=== PATIENT | female | born 1970 | race Caucasian/White ===

== ENCOUNTER 2017-05-09 15:43 | Emergency (ER) | payer MEDICARE, MEDICAID ==
[2017-05-09 17:50] VITALS: BP 101/68
--- NOTE | 2017-05-09 18:26 | UC ---
Throat Pain/Nasal Nik HPI - HPI Summary HPI Summary: 47 y/o female PMHX mental disabilities Presents to the urgent accompany by caregiver from [facility] c/o nasal congestion with green nasal discharge, subjective fever for the pst 3 days. Caregiver states she wants to make sure pt is well. She states Pt has pneumonia in September2016 and was Hospitalized, intubated and on ICU for several days. Pt is UTD with pneumococcal and influenza Vaccines in 03/07/2015 and 02/15/2017 respectively. Pt deneis pain, SOB, cough, chest pain, abdominal pain, N/V/D, urinary symptoms , back pain. - History of Current Complaint Chief Complaint: UCGeneralIllness Stated Complaint: LOW GRADE TEMP, GREEN SNOT Time Seen by Provider: 05/09/17 18:09 Hx Obtained From: Patient Hx Last Menstrual Period: menopausal ?: No Onset/Duration: Gradual Onset, Lasting Days - 3 days, Still Present Severity: Mild Pain Intensity: 0 Pain Scale Used: 0-10 Numeric Cough: None Associated Signs & Symptoms: Positive: Sinus Discomfort, Nasal Discharge, Fever - subjective at home - Allergies/Home Medications Allergies/Adverse Reactions: Allergies Allergy/AdvReac Type Severity Reaction Status Date / Time Risperidone [From Risperdal] Allergy Unknown Verified 05/09/17 17:35 Reaction Details Home Medications: Home Medications Calcium Carbonate-Vitamin D [Calcium 500 + D 500-125 mg-Unit] 1 tab DAILY [History Confirmed 05/09/17] LoraTADine TAB(NF) [Claritin 10 MG TAB(NF)] 1 tab DAILY 05/09/17 [History Confirmed 05/09/17] Sertraline* [Zoloft*] 1 tab BEDTIME 05/09/17 [History Confirmed 05/09/17] PMH/Surg Hx/FS Hx/Imm Hx Previously Healthy: Yes Psychological History: Depression - Surgical History Surgical History: None - Family History Known Family History: Positive: Unknown - Pt doesn't know any FmHX - Social History Occupation: Disabled Lives: Assisted Living Alcohol Use: None Substance Use Type: None Smoking Status (MU): Never Smoked Tobacco - Immunization History Most Recent Influenza Vaccination: 02/15/17 Most Recent Tetanus Shot: 02/03/17 Most Recent Pneumonia Vaccination: 03/07/15 Review of Systems Constitutional: Fever - subjective at home Skin: Negative Eyes: Negative ENT: Nasal Discharge, Sinus Congestion Respiratory: Negative Cardiovascular: Negative Gastrointestinal: Negative Genitourinary: Negative Motor: Negative Neurovascular: Negative Musculoskeletal: Negative Neurological: Negative Psychological: Negative Is Patient Immunocompromised?: No All Other Systems Reviewed And Are Negative: Yes Physical Exam Triage Information Reviewed: Yes Vital Signs: Initial Vital Signs Temp 98.1 F 05/09/17 17:35 Pulse 75 05/09/17 17:35 Resp 16 05/09/17 17:35 BP 101/68 05/09/17 17:35 Pulse Ox 100 05/09/17 17:35 - Additional Comments VITAL SIGNS: Reviewed. GENERAL: Patient is a well developed and nourished female who is sitting comfortable in her wheel chair w/o any any acute respiratory distress or pain. HEAD AND FACE: No signs of trauma. No ecchymosis, hematomas or skull depressions. No sinus tenderness. edematous erythematous nasal mucosa with yellowish discharge, EYES: PERRLA, EOMI x 2, No injected conjunctiva, clear watery eyes, no nystagmus. No photophobia. EARS: Hearing grossly intact. Ear canals and tympanic membranes are within normal limits. MOUTH: Positive pharynx with erythema, no exudates,no palatal petechiae. no B/ L tonsillar enlargement Uvula in midline. NECK: Supple, trachea is midline, Positive anterior cervical lymphadenopathy, no JVD, no carotid bruit, no c-spine tenderness, neck with full ROM. No meningeal signs, no Kernig's or brudzinskis signs. CHEST: Symmetric, no tenderness at palpation LUNGS: Clear to auscultation bilaterally. No wheezing or crackles. CVS: Regular rate and rhythm, S1 and S2 present, no murmurs or gallops appreciated. ABDOMEN: Soft, non-tender. No signs of distention. No rebound no guarding, and no masses palpated. Bowel sounds are normal. EXTREMITIES: FROM in all major joints, no edema, no cyanosis or clubbing. NEURO: Alert and oriented x 3. No acute neurological deficits. Speech is normal and follows commands. SKIN: Dry and warm Throat Pain/Nasal Course/Dx - Course Course Of Treatment: 47 y/o female PMHX mental disabilities Presents to the urgent accompany by caregiver from [facility] c/o nasal congestion with green nasal discharge, subjective fever for the pst 3 days. Caregiver states she wants to make sure pt is well. She states Pt has pneumonia in September2016 and was Hospitalized, intubated and on ICU for several days. Pt is UTD with pneumococcal and influenza Vaccines in 03/07/2015 and 02/15 respectively. Pt denies pain, SOB, cough, chest pain, abdominal pain, N/V/ D, urinary symptoms, back pain.Hx obtained. Pt with URI on examination. Influenza A&B ordered: result: Negative.Pt Rx Saline drops and Flonase nasal spray to clear sinuses and advised to takeTylenol PO prn to alleviates symptoms. Advised on hand washing Pt advised to rest, increase fluid intake, eat well and avoid strenuous exercise. Caregiver advised If symptoms do not improve or worsen to return to the urgent care or f/u with her PCP for further evaluation and treatment. Caregiver and Pt understood and agreed with plan of care. - Differential Dx/Diagnosis Differential Diagnosis/HQI/PQRI: Influenza, Laryngitis, Pharyngitis, Sinusitis, Tonsillitis, URI Provider Diagnoses: 1- Upper respiratory infection Discharge - Discharge Plan Condition: Stable Disposition: HOME Prescriptions: Fluticasone NASAL SPRAY 50MCG* [Flonase NASAL SPRAY 50MCG*] 2 spray BOTH NARES DAILY #1 btl Saline NASAL DROPS 0.65%* [Sodium Chloride 0.65% Nasal DROPS*] 2 drop BOTH NARES ED ONCE #1 btl Patient Education Materials: Upper Respiratory Infection (ED) Referrals: Paola Flores MD [Primary Care Provider] - 3 Days Additional Instructions: 1-Please take Tylenol PO q6-8hrs prn as instructed after meals to alleviate symptoms. Increase fluid intake, eat well, rest and avoid strenuous exercise 2-Please use saline spray OTC: 2 drops on each nostril and flonase nasal spray to clear your sinus. 2-If symptoms do not improve or worsen please return to the urgent care or f/u with your PCP in 3 days for further evaluation and treatment.
== END 2017-05-09 19:24 | disposition home or self-care (01) ==
LOC: UCCORT 15:43
DX: J06.9 Acute upper respiratory infection, unspecified (principal); F32.9 Major depressive disorder, single episode, unspecified; Z88.8 Allergy status to other drugs, medicaments and biological substances
CPT/HCPCS: 87502; 99212; G0463

== ENCOUNTER 2017-07-05 17:48 | Emergency (ER) | payer MEDICARE, MEDICAID ==
--- OUTSIDE RECORDS SUMMARY | 2017-07-05 17:57 | XMS REPORT ---
:1970 External Reference #:[id number] Author Organization [facility] Address [address] [place] [address] Phone [phone] Care Team Providers Name Role Phone Paola Flores MD Care Team Information Slackman Unavailable Paola Flores MD Primary Care Physician Unavailable Payers Type Date Identification Numbers Payment Provider Subscriber Medicare Primary Policy Number: [id number] Medicare Debbie Hung PayID: [id number] [address] [place] [address] Medicaid Policy Number: [id number] Medicaid Debbie Hung PayID: [id number] [address] [place] [address] Problems Description No Information Family History Date Family Member(s) Problem(s) Comments Father Unknown Mother Unknown Social History Type Date Description Comments Home Environment Usp Cigarette Use Never Smoked Cigarettes ETOH Use Never used alcohol Recreational Drug Use Never Used Drugs Allergies, Adverse Reactions, Alerts Date Description Reaction Status Severity Comments 07/04/2017 Risperdal active Moderate Medications Medication Date Status Form Strength Qnty SIG Indications Ordering Provider Colace Active Capsules 100mg 1 by Unknown 000 mouth twice a day Polyethylene Active Powder Unknown Glycol 3350 000 Multi Vitamin Active Tablets Unknown Daily 000 Vitamin D Active Tablets 2000Unit 1 by Unknown 000 mouth every day Fish Oil 0 Active Capsules 1000mg Unknown 000 Calcium 500/D 0 Active Tablets 500-200mg- 1 by Unknown 000 Unit mouth every day Loratadine Active Capsules 10mg 1 by Unknown 000 mouth every day Sertraline HCL 0 Active Tablets 50mg 1 by Unknown 000 mouth every day Guaifenesin 0 Active Syrup 100mg/5ML 10 mls Unknown 000 Acetaminophen 0 Active Tablets 325mg 1 tab as Unknown 000 needed q4 Bacitracin 0 Active Ointment 500Unit/GM apply Unknown (External) 000 locally three times a day Vital Signs Date Vital Result Comment 07/04/2017 Weight 130.56 lb Per nurse from pt home Height 62 inches 5'2" BMI (Body Mass Index) 23.9 kg/m2 BP Systolic 89 mmHg BP Diastolic 60 mmHg Heart Rate 72 /min O2 % BldC Oximetry 98 % room air Body Temperature 96.5 F Pain Level 0 Results Description No Information Procedures Description No Information Plan of Care No Information Available
--- OUTSIDE RECORDS SUMMARY | 2017-07-05 17:57 | XMS REPORT ---
:1970 External Reference #:[id number] Author Organization [facility] Address [address] [place] [address] Phone [phone] Care Team Providers Name Role Phone Paola Flores MD Care Team Information Associate Store Manager Unavailable Paola Flores MD Primary Care Physician Unavailable Payers Type Date Identification Numbers Payment Provider Subscriber Medicare Primary Policy Number: [id number] Medicare Debbie Hung PayID: [id number] [address] [place] [address] Medicaid Policy Number: [id number] Medicaid Debbie Hugn PayID: [id number] [address] [place] [address] Problems Description No Information Family History Date Family Member(s) Problem(s) Comments Father Unknown Mother Unknown Social History Type Date Description Comments Home Environment Care Home Cigarette Use Never Smoked Cigarettes ETOH Use [...] tab as Unknown 000 needed q4 Bacitracin Active Ointment 500Unit/GM apply Unknown (External) 000 [...] Level 0 Results Description No Information Procedures Date CPT Code Description Status 07/04/2017 27857 Audiometry, Comprehensive Completed Encounters Type Date Location Provider CPT E/M Dx Office Visit 07/04/2017 9:00a [place] [id number] H90.3 Plan of Care No Information Available
[2017-07-05 18:45] VITALS: BP 101/58
[2017-07-05] MEDS ORDERED: Penicillin VK 500 MG TAB(NF) PO ONE (18:57)
--- NOTE | 2017-07-05 19:07 | UC ---
Throat Pain/Nasal Nik HPI - HPI Summary HPI Summary: Pt is accompanied by personal lines agent. healthcare risk control consultant reports that pt has c/o sore throat, cough, nasal congestion, fatigue, and decreased appetite. - History of Current Complaint Chief Complaint: UCGeneralIllness Stated Complaint: LOW GRADE TEMP, CONGESTION, LOSS OF APPETITE Time Seen by Provider: 07/05/17 18:29 Hx Obtained From: Family/Investigator Hx Last Menstrual Period: menopausal ?: No Onset/Duration: Sudden Onset, Lasting Days, Still Present Severity: Mild Pain Intensity: 0 Associated Signs & Symptoms: Positive: Dysphagia - Epiglottits Risk Factors Epiglottis Risk Factors: Negative - Allergies/Home Medications Allergies/Adverse Reactions: Allergies Allergy/AdvReac Type Severity Reaction Status Date / Time risperidone [From Risperdal] Allergy Unknown unknown Verified 07/05/17 18:45 reaction Home Medications: Home Medications Cholecalciferol (Vitamin D3) [Vitamin D3] 2,000 unit PO DAILY 07/05/17 [History Confirmed 07/05/17] Docusate CAP* [Colace Cap*] 100 mg PO BID 07/05/17 [History Confirmed 07/05/17] Multivitamins/Minerals TAB* [Theragran/minerals TAB*] 1 tab PO DAILY 07/05/17 [ History Confirmed 07/05/17] [place]-3 Fatty Acids (Nf) [Fish Oil (NF)] 1,000 mg PO DAILY 07/05/17 [History Confirmed 07/05/17] Polyethylene Glycol 3350* [Miralax*] 17 gm PO DAILY 07/05/17 [History Confirmed 07/05/17] guaiFENesin [Mucinex] 600 mg PO Q6H PRN 07/05/17 [History Confirmed 07/05/17] PMH/Surg Hx/FS Hx/Imm Hx Previously Healthy: Yes - Surgical History Surgical History: None - Family History Known Family History: Positive: Unknown - Pt doesn't know any FmHX - Social History Occupation: Disabled Lives: Long Term Alcohol Use: None Substance Use Type: None Smoking Status (MU): Never Smoked Tobacco Have You Smoked in the Last Year: No - Immunization History Most Recent Influenza Vaccination: 02/15/17 Most Recent Tetanus Shot: 02/03/17 Most Recent Pneumonia Vaccination: 03/07/15 Review of Systems Constitutional: Fatigue Skin: Negative Eyes: Negative ENT: Sore Throat, Sinus Congestion Respiratory: Negative Cardiovascular: Negative Gastrointestinal: Negative Genitourinary: Negative Motor: Negative Neurovascular: Negative Musculoskeletal: Negative Neurological: Negative Psychological: Negative Is Patient Immunocompromised?: No All Other Systems Reviewed And Are Negative: Yes Physical Exam Triage Information Reviewed: Yes Appearance: Well-Appearing Vital Signs: Initial Vital Signs Temp 98.1 F 07/05/17 18:38 Pulse 80 07/05/17 18:38 Resp 18 07/05/17 18:38 BP 101/58 07/05/17 18:38 Pulse Ox 100 07/05/17 18:38 Vital Signs Reviewed: Yes Eye Exam: Normal ENT Exam: Other ENT: Positive: Pharyngeal erythema, Nasal congestion Dental: Positive: Gross Decay/Caries @ Neck exam: Normal Respiratory Exam: Normal Cardiovascular Exam: Normal Musculoskeletal Exam: Normal Neurological Exam: Normal Psychological Exam: Normal Skin Exam: Normal Throat Pain/Nasal Course/Dx - Differential Dx/Diagnosis Differential Diagnosis/HQI/PQRI: Pharyngitis, Tonsillitis, URI Provider Diagnoses: Tonsillitis Discharge - Discharge Plan Condition: Stable Disposition: HOME Prescriptions: Penicillin VK 500 MG TAB(NF) [Penicillin VK 500 mg Tab] 500 mg PO Q8H #30 tab Patient Education Materials: Tonsillitis (ED) Referrals: Paola Flores MD [Primary Care Provider] - If Needed Additional Instructions: Please follow up with your PCP or return to clinic as needed.
[2017-07-05] MEDS ORDERED: Penicillin VK TAB* 250 MG PO ONE (19:22)
== END 2017-07-05 19:37 | disposition home or self-care (01) ==
LOC: UCCORT 17:48
DX: J03.90 Acute tonsillitis, unspecified (principal); Z88.8 Allergy status to other drugs, medicaments and biological substances
CPT/HCPCS: 99212; A9270-GY; G0463

== ENCOUNTER 2017-07-19 09:44 | Emergency (ER) | payer MEDICARE, MEDICAID ==
[2017-07-19 10:27] VITALS: BP 82/63
--- NOTE | 2017-07-19 11:25 | UC ---
General HPI - HPI Summary HPI Summary: pt from assisted care. care advocate notes pt found to have a sore on her upper lip this am. no injury or hx cold sores. scheduled for breast biopsy this coming saturday so they would like it checked. no reported fever and is otherwise fine per the care advocate. pt has cognitive limitations thus not able to give hx herself. No head congestion, cough, sob, v/d. 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 Hx Last Menstrual Period: menopausal Onset/Duration: Gradual Onset Timing: Constant Pain Intensity: 0 Aggravating: nothing Alleviating: nothing Associated Signs & Symptoms: Negative: Fever - Allergy/Home Medications Allergies/Adverse Reactions: Allergies Allergy/AdvReac Type Severity Reaction Status Date / Time risperidone [From Risperdal] Allergy Unknown unknown Verified 07/19/17 10:27 reaction Home Medications: Home Medications Polyethylene Glycol 3350 [Miralax] 17 gm PO 07/19/17 [History] PMH/Surg Hx/FS Hx/Imm Hx - Additional Past Medical History Additional PMH: Cerebral atrophy, neurogenic bladder, cognitive limitations. abulates with assistance and walker Endocrine History: Dyslipidemia Psychological History: Depression - Surgical History Surgical History: None - Family History Known Family History: Positive: Unknown - Pt doesn't know any FmHX - Social History Occupation: Disabled Lives: Assisted Living Alcohol Use: None Substance Use Type: None Smoking Status (MU): Never Smoked Tobacco Have You Smoked in the Last Year: No - Immunization History Most Recent Influenza Vaccination: 02/15/17 Most Recent Tetanus Shot: 02/03/17 Most Recent Pneumonia Vaccination: 03/07/15 Review of Systems Skin: Rash - upper lip Is Patient Immunocompromised?: No All Other Systems Reviewed And Are Negative: No Physical Exam - Summary Physical Exam Summary: In wheel chair for exam. Triage Information Reviewed: Yes Appearance: Well-Appearing Vital Signs: Initial Vital Signs Temp 97.4 F 07/19/17 10:22 Pulse 81 07/19/17 10:22 Resp 18 07/19/17 10:22 BP 82/63 07/19/17 10:22 Pulse Ox 99 07/19/17 10:22 Vital Signs Reviewed: Yes Eyes: Positive: Conjunctiva Clear ENT: Positive: Pharynx normal, TMs normal, Other - Single semicircular 4mm area L upper lip with white coating c/w cold sore.. Negative: Nasal congestion, Nasal drainage Neck: Positive: Supple, Nontender, No Lymphadenopathy Respiratory: Positive: Lungs clear, Normal breath sounds Cardiovascular: Positive: RRR, No Murmur Abdomen Description: Positive: Nontender, No Organomegaly, Soft Bowel Sounds: Positive: Present Musculoskeletal: Positive: No Edema Neurological: Positive: Alert Psychological: Positive: Other: - sheet taker notes baseline behavior for pt Skin Exam: Normal Course/Dx - Course Course Of Treatment: exam c/w cold sore on L upper lip - Differential Dx - Multi-Symptom Provider Diagnoses: cold sore Discharge - Sign-Out/Discharge Documenting (check all that apply): Discharge - Discharge Plan Condition: Stable Disposition: HOME Prescriptions: ValACYclovir (*) [Valtrex 1 GM(*)] 2 gm PO Q12H 1 Days #4 tab Patient Education Materials: Oral Herpes Simplex Virus Infections (ED) Referrals: Paola Flores MD [Primary Care Provider] - 5 Days - Billing Disposition and Condition Condition: STABLE Disposition: HOME
== END 2017-07-19 11:33 | disposition home or self-care (01) ==
LOC: UCCORT 09:44
DX: Z88.8 Allergy status to other drugs, medicaments and biological substances (principal); B00.1 Herpesviral vesicular dermatitis
CPT/HCPCS: 99212; G0463

== ENCOUNTER 2019-05-03 09:58 | Emergency (ER) | payer MEDICARE, MEDICAID ==
--- OUTSIDE RECORDS SUMMARY | 2019-05-03 10:36 | XMS REPORT | Continuity of Care Document ---
:1970 External Reference #:[id number] Author Name Janine Gomez NP (transmitted by agent of provider Bianka Blakely) Address [address] [place] [address] Care Team Providers Name Role Phone Paola Flores MD - Family Medicine Care Team Information Pet Resort Concierge Unavailable Problems Description No Information Available Social History Type Date Description Comments Sex Unknown Tobacco Use Start: Unknown Never Smoked Cigarettes ETOH Use Never used alcohol Recreational Drug Use Never Used Drugs Allergies, Adverse Reactions, Alerts Active Allergies Reaction Severity Comments Date Risperdal Moderate 07/04/2017 Pneumovax Moderate 04/10/2018 Medications Active Medications SIG Qnty Indications Ordering Date Provider Baby Oil apply3 drops 1Bottle Christiano [place], 04/10/2018 Oil right ears at M.D. night. will need dropper for 1 week prior to ear cleanings and for the next week Colace 1 by mouth twice Unknown 100mg Capsules a day Polyethylene Glycol Unknown 3350 Powder Multi Vitamin Daily Unknown Tablets Vitamin D 1 by mouth every Unknown 2000Unit day Tablets Fish Oil Unknown 1000mg Capsules Calcium 500/D 1 by mouth every Unknown day [id number] Tablets Loratadine 1 by mouth every Unknown 10mg day Capsules Sertraline HCL 1 by mouth every Unknown 50mg day Tablets Guaifenesin 10 mls Unknown 100mg/5ML Syrup Acetaminophen 1 tab as needed Unknown 325mg q4 Tablets Bacitracin (External) apply locally Unknown three times a day 500Unit/GM Ointment Immunizations Description No Information Available Vital Signs Date Vital Result Comment 04/16/2019 1:11pm Weight 145.00 lb Height 63 inches 5'3" BMI (Body Mass Index) 25.7 kg/m2 BP Systolic 95 mmHg BP Diastolic 64 mmHg Heart Rate 72 /min O2 % BldC Oximetry 96 % Body Temperature 96.5 F Pain Level 0 10/09/2018 1:43pm Weight 145.00 lb Height 63 inches 5'3" BMI (Body Mass Index) 25.7 kg/m2 BP Systolic 100 mmHg BP Diastolic 73 mmHg Heart Rate 82 /min O2 % BldC Oximetry 97 % Body Temperature 97.0 F Pain Level 0 Results Description No Information Available Procedures Description No Information Available Medical Devices Description No Information Available Encounters Description No Information Available Assessments Description No Information Available Plan of Treatment No Information Available Functional Status Description No Information Available Mental Status Description No Information Available Referrals Description No Information Available
[2019-05-03 10:43] VITALS: BP 95/65
--- NOTE | 2019-05-03 10:56 | UC ---
Throat Pain/Nasal Nik HPI - HPI Summary HPI Summary: 49-year-old female who is wheelchair bound from a custodial. She's had a sore throat and fever over the past 2 days with runny nose. She also complains of nasal pain. The caregiver states she has not had a cough. 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 Hx From Patient Unobtainable Due To: Altered Mental Status Hx Last Menstrual Period: menopausal ?: No Onset/Duration: Gradual Onset Severity: Mild Pain Intensity: 0 Cough: None Associated Signs & Symptoms: Positive: Nasal Discharge, Fever - Allergies/Home Medications Allergies/Adverse Reactions: Allergies Allergy/AdvReac Type Severity Reaction Status Date / Time risperidone [From Risperdal] Allergy Unknown unknown Verified 05/03/19 10:43 reaction Home Medications: Home Medications Fexofenadine HCl 1 tab PO DAILY 05/03/19 [History Confirmed 05/03/19] Ketoconazole 2 % CREAM (NF) [Nizoral 2% CREAM (NF)] 1 applic TOPICAL DAILY 05/03 [History Confirmed 05/03/19] PMH/Surg Hx/FS Hx/Imm Hx Previously Healthy: Yes Cardiovascular History: Atrial Fibrillation - Surgical History Surgical History: None - Family History Known Family History: Positive: Unknown - Pt doesn't know any FmHX - Social History Occupation: Disabled Lives: Residential Alcohol Use: None Substance Use Type: None Smoking Status (MU): Never Smoked Tobacco Have You Smoked in the Last Year: No - Immunization History Most Recent Influenza Vaccination: 02/15/17 Most Recent Tetanus Shot: 02/03/17 Most Recent Pneumonia Vaccination: 03/07/15 Review of Systems All Other Systems Reviewed And Are Negative: Yes Constitutional: Positive: Fever - Fever the past 24-48 hours ENT: Positive: Sore Throat, Nasal Discharge - Yellowish/clear nasal coryza Respiratory: Negative: Cough - Caregiver denies any cough Is Patient Immunocompromised?: No Physical Exam Triage Information Reviewed: Yes Appearance: Well-Appearing, No Pain Distress, Well-Nourished Vital Signs: Initial Vital Signs Temp 98.5 F 05/03/19 10:36 Pulse 66 05/03/19 10:36 Resp 18 05/03/19 10:36 BP 95/65 05/03/19 10:36 Pulse Ox 95 05/03/19 10:36 Vital Signs Reviewed: Yes Eyes: Positive: Conjunctiva Clear ENT: Positive: Pharyngeal erythema - Minimal pharyngeal erythema., Nasal congestion, Nasal drainage - Yellowish/clear nasal coryza, I do not see any sore in the nasal passages., TMs normal, Uvula midline Neck: Positive: Supple, Nontender, No Lymphadenopathy Respiratory: Positive: Lungs clear, Normal breath sounds, No respiratory distress, No accessory muscle use Cardiovascular: Positive: RRR, No Murmur, Pulses Normal, Brisk Capillary Refill Musculoskeletal: Positive: Other: - Normal for this patient. Neurological: Positive: Alert, Other: - Patient is interacting appropriately according to caregiver. Throat Pain/Nasal Course/Dx - Course Course Of Treatment: Rapid strep test: Negative Rapid influenza: Negative At this point time I feel this is a viral upper respiratory illness however they are to recheck with her primary care provider in 2 or 3 days especially if she has a continued fever or any worsening symptoms. - Differential Dx/Diagnosis Provider Diagnosis: URI (upper respiratory infection) Discharge ED - Sign-Out/Discharge Documenting (check all that apply): Patient Departure All imaging exams completed and their final reports reviewed: No Studies - Discharge Plan Condition: Good Disposition: HOME Patient Education Materials: Upper Respiratory Infection (ED) Referrals: Paola Flores MD [Primary Care Provider] - Additional Instructions: Increase fluids, may give Tylenol every 4 hours and Motrin every 8 hours for fever. Definite follow-up with primary care provider if no improvement in 2 or 3 days or if continued fever. - Billing Disposition and Condition Condition: GOOD Disposition: Home
[2019-05-03 11:20] LABS: Influenza A Molecular NEGATIVE (Negative); Influenza B Molecular NEGATIVE (Negative)
== END 2019-05-03 11:35 | disposition home or self-care (01) ==
LOC: UCCORT 09:58
DX: J06.9 Acute upper respiratory infection, unspecified (principal); I48.91 Unspecified atrial fibrillation; Z88.8 Allergy status to other drugs, medicaments and biological substances
CPT/HCPCS: 87651; 99211; G0463

== ENCOUNTER 2019-10-14 14:30 | Inpatient (IN) ==
[2019-10-14] MEDS ORDERED: cefTRIAXone 1 gm/50 mL NS BAG 1 GM/50 ML BAG IV ONE (14:34)
[2019-10-14] MEDS ORDERED: NS 0.9% 1000 ml BAG 1,000 ML IV ONE ×2 (14:34→16:52)
[2019-10-14 15:26] LABS: INR 1.08 (0.82-1.09)
[2019-10-14] MEDS ORDERED: Azithromycin 500 mg/250 ml NS 500 MG/250 ML BAG IVPB ONE (15:28)
[2019-10-14 15:36] LABS: Albumin 4.2 g/dL (3.2-5.2); Albumin/Globulin Ratio 1.2 (1-3); BUN/Creatinine Ratio 11.5 (8-20); Calcium 9.5 mg/dL (8.6-10.3); EGFR African American 94.2 (>60); EGFR Non-African American 77.9 (>60); Globulin 3.4 g/dL (2-4); Total Bilirubin 0.4 mg/dL (0.2-1.0); Total Protein 7.6 g/dL (6.4-8.9)
[2019-10-14 16:01] LABS: Hematocrit 40 % (35-47); Hemoglobin 14.2 g/dL (12.0-16.0); Mean Corpuscular HGB Conc 35 g/dL (31-36); Mean Corpuscular Hemoglobin 31 pg (27-31); Mean Corpuscular Volume 89 fL (80-97); Red Blood Count 4.53 10^6 /uL (3.70-4.87); Red Cell Distribution Width 13 % (10-15)
[2019-10-14 16:09] LABS: ABS Basophils 0.1 10^3/ul (0-0.2); ABS Eosinophils 0.1 10^3/ul (0-0.6); ABS Lymphocytes 0.9 10^3/ul (1.0-4.8); ABS Monocytes 0.8 10^3/ul (0-0.8); Eosinophil % 1.4 %; Large Platelets Present; Lymphocyte % 9.2 %; Mean Platelet Volume 12.1 fL (7.4-10.4); Platelet Count 92 10^3/uL (150-450)
[2019-10-14] MEDS ORDERED: Senna TAB 8.6 mg TAB PO PRN (16:52)
[2019-10-14] MEDS ORDERED: Ondansetron 4 mg VIAL 2 MG/ML 2 ml VIAL IV PRN (16:52)
[2019-10-14 16:56] LABS: Potassium 4.2 mmol/L (3.5-5.0)
[2019-10-14] MEDS ORDERED: Zinc Oxide 16% PASTE (Butt Paste) 30 gm TUBE TOPICAL PRN (17:24)
[2019-10-14] MEDS ORDERED: GuaiFENesin DM 100 mg/10 mg in 5 ML UDC PO PRN (17:28)
[2019-10-14] MEDS: Calcium/Vitamin D TAB 250/125 TAB PO SCH (20:35)
[2019-10-14 21:12] LABS: Urine Appearance Clear; Urine Bilirubin Negative (Negative); Urine Blood Negative (Negative); Urine Color Yellow; Urine Glucose Negative (Negative); Urine Ketones Negative (Negative); Urine Nitrite Negative (Negative); Urine Protein Negative (Negative); Urine Specific Gravity 1.013 (1.010-1.030); Urine Urobilinogen Negative (Negative)
[2019-10-14] MEDS: Enoxaparin 40 MG/0.4 ML SYR(*) SUBCUT SCH (21:12)
[2019-10-15 06:07] LABS: ABS Eosinophils 0.1 10^3/ul (0-0.6); ABS Lymphocytes 0.9 10^3/ul (1.0-4.8); ABS Monocytes 0.6 10^3/ul (0-0.8); Eosinophil % 1.6 %; Hematocrit 36 % (35-47); Hemoglobin 12.4 g/dL (12.0-16.0); Lymphocyte % 14.1 %; Mean Corpuscular HGB Conc 34 g/dL (31-36); Mean Corpuscular Hemoglobin 30 pg (27-31); Mean Corpuscular Volume 89 fL (80-97); Mean Platelet Volume 12.2 fL (7.4-10.4); Platelet Count 97 10^3/uL (150-450); Red Blood Count 4.07 10^6 /uL (3.70-4.87); Red Cell Distribution Width 13 % (10-15); White Blood Count 6.6 10^3/uL (3.5-10.8)
[2019-10-15 06:18] LABS: BUN/Creatinine Ratio 9.2 (8-20); Calcium 8.3 mg/dL (8.6-10.3); EGFR African American 116.3 (>60); EGFR Non-African American 96.1 (>60); Potassium 3.6 mmol/L (3.5-5.0)
[2019-10-15] MEDS: Multivitamins/Minerals TAB PO SCH (09:12)
[2019-10-15] MEDS: Calcium/Vitamin D TAB 250/125 TAB PO SCH ×2 (09:12→21:47)
[2019-10-15] MEDS: Polyethylene Glycol 3350 17 GM PACKET PO SCH (09:12)
[2019-10-15] MEDS: cefTRIAXone 1 gm/50 mL NS BAG 1 GM/50 ML BAG IVPB SCH ×2 (15:05→15:20)
[2019-10-15] MEDS ORDERED: Azithromycin 500 mg/250 ml NS 500 MG/250 ML BAG IVPB SCH (16:00)
[2019-10-15] MEDS: Enoxaparin 40 MG/0.4 ML SYR(*) SUBCUT SCH (16:55)
[2019-10-15] MEDS ORDERED: NS 0.9% 1000 ml BAG 1,000 ML IV SCH (20:00)
[2019-10-16 06:49] LABS: ABS Basophils 0.1 10^3/ul (0-0.2); ABS Eosinophils 0.1 10^3/ul (0-0.6); ABS Lymphocytes 1.2 10^3/ul (1.0-4.8); ABS Monocytes 0.6 10^3/ul (0-0.8); Eosinophil % 1.6 %; Hematocrit 35 % (35-47); Mean Corpuscular HGB Conc 35 g/dL (31-36); Mean Corpuscular Hemoglobin 31 pg (27-31); Mean Corpuscular Volume 89 fL (80-97); Mean Platelet Volume 11.4 fL (7.4-10.4); Nucleated Red Blood Cells % 0.1; Platelet Count 91 10^3/uL (150-450); Red Blood Count 3.88 10^6 /uL (3.70-4.87); Red Cell Distribution Width 13 % (10-15); White Blood Count 6.1 10^3/uL (3.5-10.8)
[2019-10-16] MEDS: Multivitamins/Minerals TAB PO SCH (09:08)
[2019-10-16] MEDS: Polyethylene Glycol 3350 17 GM PACKET PO SCH (09:08)
[2019-10-16] MEDS: Calcium/Vitamin D TAB 250/125 TAB PO SCH (09:08)
[2019-10-16] MEDS: cefTRIAXone 1 gm/50 mL NS BAG 1 GM/50 ML BAG IVPB SCH (14:47)
[2019-10-16 15:24] VITALS: BP 111/74
== END 2019-10-16 15:45 | disposition home or self-care (01) | DRG 871 ==
LOC: ED 14:30 → MED 16:52
PROVIDERS: ADMIT Internal Medicine; ATTEND Hospitalist

== ENCOUNTER 2021-08-21 11:58 | Observation (INO) ==
[2021-08-21] MEDS ORDERED: cefTRIAXone 1 gm/50 mL D5W 1 GM/50 ML BAG IV ONE (12:35)
[2021-08-21] MEDS ORDERED: Azithromycin 500 mg/250 ml NS 500 MG/250 ML BAG IVPB ONE (12:35)
[2021-08-21] MEDS ORDERED: Lactated Ringers 1000 ml BAG 1,000 ML IV ONE (12:35)
[2021-08-21] MEDS ORDERED: DOXYcycline IV 100 MG in NS 0.9% 250 ML IVPB ONE (13:00)
[2021-08-21 13:32] LABS: ABS Lymphocytes 0.6 10^3/ul (1.0-4.8); ABS Monocytes 0.7 10^3/ul (0-0.8); Hematocrit 44 % (35-47); Lymphocyte % 5.6 %; Mean Corpuscular HGB Conc 34 g/dL (31-36); Mean Corpuscular Hemoglobin 30 pg (27-31); Mean Corpuscular Volume 88 fL (80-97); Mean Platelet Volume 11.3 fL (7.4-10.4); Platelet Count 125 10^3/uL (150-450); Red Blood Count 4.97 10^6 /uL (3.70-4.87); Red Cell Distribution Width 13 % (10-15); White Blood Count 10.4 10^3/uL (3.5-10.8)
[2021-08-21] MEDS ORDERED: cefTRIAXone 1 GM ONETIME (Pharmacy Admix) IVPB ONE (13:45)
[2021-08-21 13:47] LABS: Activated Partial Thrombo Time 32.5 seconds (26.0-38.0); INR 1.1 (0.86-1.15)
[2021-08-21 13:51] LABS: Albumin 4.3 g/dL (3.2-5.2); Albumin/Globulin Ratio 1.5 (1-3); C Reactive Protein 118.79 mg/L (<8.01); Calcium 9.7 mg/dL (8.6-10.3); Globulin 2.8 g/dL (2-4); Potassium 4.2 mmol/L (3.5-5.0); Total Bilirubin 0.5 mg/dL (0.2-1.0); Total Protein 7.1 g/dL (6.4-8.9); eGFR CKD-EPI 72.6 (>60)
[2021-08-21] MEDS ORDERED: Piperacillin/Tazobac ADVAN 3.375 GM in NS 0.9% 100 ml BAG 100 ML IV ONE (15:10)
[2021-08-21] MEDS ORDERED: guaiFENesin 100 mg/5 ml LIQ unit dose cup PO PRN (15:12)
[2021-08-21] MEDS ORDERED: Pantoprazole VIAL 40 MG VIAL IV SCH (16:00)
[2021-08-21] MEDS ORDERED: Zosyn per Pharmacy NOTE FOLLOW UP SCH (16:00)
[2021-08-21] MEDS ORDERED: D5LR 1000 ml BAG 1,000 ML IV SCH (16:00)
[2021-08-21] MEDS ORDERED: Potassium Chloride IV 20 MEQ in Lactated Ringers 1000 ml BAG 1,000 ML IVPB SCH (16:30)
[2021-08-21] MEDS: ZOSYN 3.375 GM Q8H per EXTENDED INFUSION IV SCH (19:59)
[2021-08-21] MEDS ORDERED: NS 0.9% 1000 ml BAG 1,000 ML IV SCH (21:30)
[2021-08-22] MEDS: ZOSYN 3.375 GM Q8H per EXTENDED INFUSION IV SCH (04:09)
[2021-08-22 07:18] VITALS: BP 119/70
[2021-08-22] MEDS ORDERED: Polyethylene Glycol 3350 17 GM PACKET PO SCH (09:00)
== END 2021-08-22 12:00 | disposition home or self-care (01) ==
LOC: ED 11:58 → INTOOBSV 14:58 → EDHOLD 14:58 → MED 16:46
PROVIDERS: ADMIT Internal Medicine; ATTEND Internal Medicine

== ENCOUNTER 2022-08-23 12:25 | Inpatient (IN) ==
[2022-08-23 13:35] LABS: Hematocrit 29.8 % (35-45); Mean Corpuscular Hgb Conc 33.6 g/dL (31-36); Mean Corpuscular Volume 89.6 fL (80-97); Mean Platelet Volume 8.9 fL (7.5-11.2); Platelet Count 634 10^3/uL (150-450); Red Blood Count 3.32 10^6/uL (3.63-4.92); Red Cell Distribution Width 13.8 % (12-17); White Blood Count 5.4 10^3/uL (3.8-11.8)
[2022-08-23] MEDS ORDERED: Lactated Ringers 1000 ml BAG 1,000 ML IV ONE (14:03)
[2022-08-23 14:15] LABS: RBC Morphology Normal (Normal)
[2022-08-23 14:16] LABS: ALT 36 U/L (7-52); Albumin 3.6 g/dL (3.2-5.2); Albumin/Globulin Ratio 1.2 (1-3); Alkaline Phosphatase 254 U/L (35-149); Blood Urea Nitrogen 17 mg/dL (6-24); CO2 Carbon Dioxide 26 mmol/L (22-32); Calcium 9.4 mg/dL (8.6-10.3); Chloride 105 mmol/L (101-111); Glucose 91 mg/dL (70-100); Sodium 139 mmol/L (135-145); Total Protein 6.6 g/dL (6.4-8.9); eGFR CKD-EPI 102.7 (>60)
[2022-08-23] MEDS ORDERED: Albuterol/Ipratropium NEB.SOL (2.5/0.5 MG) 3 ML NEB.SOLN INH ONE (14:23)
[2022-08-23 15:05] LABS: Anion Gap 8 mmol/L (2-16)
[2022-08-23] MEDS ORDERED: Magnesium Hydroxide LIQ 30 ML UDC PO PRN (16:32)
[2022-08-23] MEDS ORDERED: guaiFENesin 100 mg/5 ml LIQ unit dose cup PO PRN (16:32)
[2022-08-23 17:17] LABS: Ferritin 193.4 ng/mL (11-307)
[2022-08-23 17:21] LABS: Folate > 20.00 ng/mL (5.90-24.80)
[2022-08-23 17:22] LABS: Vitamin B12 > 1450 pg/mL (180-914)
[2022-08-23 20:06] LABS: Potassium Redraw 4.5 mmol/L (3.5-5.0)
[2022-08-23] MEDS: Calcium (OSCAL) 500 mg TAB PO SCH (20:28)
[2022-08-24 05:47] LABS: ABS Basophils 0.1 10^3/uL (0.0-0.1); ABS Eosinophils 0.1 10^3/uL (0.0-0.5); ABS Lymphocytes 0.7 10^3/uL (1.0-4.8); ABS Monocytes 0.8 10^3/uL (0.0-0.9); ABS Neutrophils 6.4 10^3/uL (1.5-7.6); ABS Nucleated RBC 0.03 10^3/ul; Eosinophil % 1.1 %; Hematocrit 27.9 % (35-45); Hemoglobin 9.5 g/dL (11.5-14.3); Mean Corpuscular Hemoglobin 30.2 pg (27-33); Mean Corpuscular Volume 88.9 fL (80-97); Mean Platelet Volume 8.7 fL (7.5-11.2); Nucleated Red Blood Cells % 0.3 /100 WBC (0.0-0.4); Platelet Count 621 10^3/uL (150-450); Red Blood Count 3.13 10^6/uL (3.63-4.92); Red Cell Distribution Width 14.1 % (12-17); White Blood Count 8.1 10^3/uL (3.8-11.8)
[2022-08-24 06:32] LABS: Calcium 9.2 mg/dL (8.6-10.3); Creatinine, Serum 0.75 mg/dL (0.51-0.95); Potassium 4.4 mmol/L (3.5-5.0); eGFR CKD-EPI 94.5 (>60)
[2022-08-24] MEDS: Calcium (OSCAL) 500 mg TAB PO SCH ×3 (09:02→22:24)
[2022-08-24] MEDS: Polyethylene Glycol 3350 17 GM PACKET PO SCH (09:02)
[2022-08-24 15:43] LABS: ABS Eosinophils 0.1 10^3/uL (0.0-0.5); ABS Lymphocytes 0.9 10^3/uL (1.0-4.8); ABS Monocytes 0.4 10^3/uL (0.0-0.9); ABS Neutrophils 9.9 10^3/uL (1.5-7.6); ABS Nucleated RBC 0.01 10^3/ul; Eosinophil % 0.7 %; Hematocrit 31.2 % (35-45); Hemoglobin 10.4 g/dL (11.5-14.3); Lymphocyte % 7.7 %; Mean Corpuscular Hemoglobin 30.2 pg (27-33); Mean Corpuscular Hgb Conc 33.5 g/dL (31-36); Mean Corpuscular Volume 90.1 fL (80-97); Mean Platelet Volume 9.4 fL (7.5-11.2); Nucleated Red Blood Cells % 0.1 /100 WBC (0.0-0.4); Platelet Count 699 10^3/uL (150-450); Red Blood Count 3.46 10^6/uL (3.63-4.92); Red Cell Distribution Width 14.3 % (12-17); White Blood Count 11.2 10^3/uL (3.8-11.8)
[2022-08-24] MEDS ORDERED: Piperacillin/Tazobac ADVAN 3.375 GM in NS 0.9% 100 ml BAG 100 ML IV ONE (18:30)
[2022-08-24] MEDS ORDERED: Zosyn per Pharmacy NOTE FOLLOW UP PRN (18:36)
[2022-08-25] MEDS: ZOSYN 3.375 GM Q8H per EXTENDED INFUSION IV SCH ×3 (00:46→16:34)
[2022-08-25 07:45] LABS: ABS Basophils 0.1 10^3/uL (0.0-0.1); ABS Lymphocytes 0.3 10^3/uL (1.0-4.8); ABS Monocytes 0.4 10^3/uL (0.0-0.9); ABS Neutrophils 5.3 10^3/uL (1.5-7.6); ABS Nucleated RBC 0.01 10^3/ul; Eosinophil % 0.6 %; Hematocrit 28.3 % (35-45); Hemoglobin 9.7 g/dL (11.5-14.3); Lymphocyte % 5.1 %; Mean Corpuscular Hemoglobin 30.2 pg (27-33); Mean Corpuscular Hgb Conc 34.2 g/dL (31-36); Mean Corpuscular Volume 88.4 fL (80-97); Mean Platelet Volume 8.7 fL (7.5-11.2); Nucleated Red Blood Cells % 0.1 /100 WBC (0.0-0.4); Platelet Count 550 10^3/uL (150-450); Red Blood Count 3.21 10^6/uL (3.63-4.92); Red Cell Distribution Width 14.1 % (12-17); White Blood Count 6.1 10^3/uL (3.8-11.8)
[2022-08-25 08:23] LABS: Calcium 8.8 mg/dL (8.6-10.3); Creatinine, Serum 0.82 mg/dL (0.51-0.95); Potassium 4.2 mmol/L (3.5-5.0); eGFR CKD-EPI 84.9 (>60)
[2022-08-25] MEDS: Polyethylene Glycol 3350 17 GM PACKET PO SCH (08:33)
[2022-08-25] MEDS: Calcium (OSCAL) 500 mg TAB PO SCH ×2 (08:43→21:28)
[2022-08-25] MEDS ORDERED: Acetaminophen IV 1 GM/100ML 1,000 MG/100 ML BAG IV ONE (13:41)
[2022-08-25] MEDS: Acetaminophen IV 1 GM/100ML 1,000 MG/100 ML BAG IV PRN ×2 (13:46→22:20)
[2022-08-25 13:52] LABS: PCO2 Arterial 29 mmHg (35-45); PO2 Arterial 69 mmHg (80-100)
[2022-08-26] MEDS: ZOSYN 3.375 GM Q8H per EXTENDED INFUSION IV SCH ×3 (00:10→16:03)
[2022-08-26 05:20] LABS: Hematocrit 30.1 % (35-45); Hemoglobin 10.2 g/dL (11.5-14.3); Mean Corpuscular Hemoglobin 30.3 pg (27-33); Mean Corpuscular Hgb Conc 33.8 g/dL (31-36); Mean Corpuscular Volume 89.4 fL (80-97); Mean Platelet Volume 9.2 fL (7.5-11.2); Platelet Count 467 10^3/uL (150-450); Red Blood Count 3.37 10^6/uL (3.63-4.92); Red Cell Distribution Width 14.2 % (12-17); White Blood Count 4.4 10^3/uL (3.8-11.8)
[2022-08-26] MEDS: Acetaminophen IV 1 GM/100ML 1,000 MG/100 ML BAG IV PRN ×2 (06:23→15:07)
[2022-08-26] MEDS: Polyethylene Glycol 3350 17 GM PACKET PO SCH (08:05)
[2022-08-26] MEDS: Calcium (OSCAL) 500 mg TAB PO SCH ×2 (09:56→20:24)
[2022-08-26] MEDS ORDERED: Lactated Ringers 1000 ml BAG 500 ML IV ONE (15:13)
[2022-08-27] MEDS: Acetaminophen IV 1 GM/100ML 1,000 MG/100 ML BAG IV PRN ×2 (00:17→18:30)
[2022-08-27] MEDS: ZOSYN 3.375 GM Q8H per EXTENDED INFUSION IV SCH ×3 (00:49→15:58)
[2022-08-27 04:35] LABS: Hematocrit 28.1 % (35-45); Hemoglobin 9.6 g/dL (11.5-14.3); Mean Corpuscular Hemoglobin 30.6 pg (27-33); Mean Corpuscular Hgb Conc 34.1 g/dL (31-36); Mean Platelet Volume 9.7 fL (7.5-11.2); Platelet Count 398 10^3/uL (150-450); Red Blood Count 3.12 10^6/uL (3.63-4.92); Red Cell Distribution Width 14.2 % (12-17); White Blood Count 1.9 10^3/uL (3.8-11.8)
[2022-08-27] MEDS: Polyethylene Glycol 3350 17 GM PACKET PO SCH (08:44)
[2022-08-27] MEDS: Calcium (OSCAL) 500 mg TAB PO SCH ×2 (10:04→21:02)
[2022-08-27 10:25] LABS: PCO2 Arterial 36 mmHg (35-45); PO2 Arterial 168 mmHg (80-100)
[2022-08-27] MEDS ORDERED: Lidocaine 1% MPF 5 ML VIAL INJ ONE (14:08)
[2022-08-28] MEDS: ZOSYN 3.375 GM Q8H per EXTENDED INFUSION IV SCH ×3 (01:26→16:58)
[2022-08-28 06:01] LABS: Hematocrit 28.3 % (35-45); Hemoglobin 9.5 g/dL (11.5-14.3); Mean Corpuscular Hemoglobin 30.5 pg (27-33); Mean Corpuscular Hgb Conc 33.6 g/dL (31-36); Mean Corpuscular Volume 90.7 fL (80-97); Mean Platelet Volume 9.3 fL (7.5-11.2); Platelet Count 362 10^3/uL (150-450); Red Blood Count 3.12 10^6/uL (3.63-4.92); Red Cell Distribution Width 14.3 % (12-17); White Blood Count 1.5 10^3/uL (3.8-11.8)
[2022-08-28 06:45] LABS: Calcium 8.2 mg/dL (8.6-10.3); Creatinine, Serum 0.67 mg/dL (0.51-0.95); Magnesium 1.9 mg/dL (1.9-2.7); Potassium 3.6 mmol/L (3.5-5.0); eGFR CKD-EPI 103.8 (>60)
[2022-08-28 06:59] LABS: ABS Lymphocytes 0.6 10^3/uL (1.0-4.8); ABS Monocytes 0.2 10^3/uL (0.0-0.9); ABS Neutrophils 0.6 10^3/uL (1.5-7.6); ABS Nucleated RBC 0.01 10^3/ul; Lymphocyte % 38.4 %; Nucleated Red Blood Cells % 0.8 /100 WBC (0.0-0.4)
[2022-08-28] MEDS: Calcium (OSCAL) 500 mg TAB PO SCH ×2 (09:04→22:18)
[2022-08-28] MEDS: Polyethylene Glycol 3350 17 GM PACKET PO SCH (09:05)
[2022-08-28] MEDS: Enoxaparin 30 MG/0.3 ML SYR SUBCUT SCH (14:47)
[2022-08-29] MEDS: ZOSYN 3.375 GM Q8H per EXTENDED INFUSION IV SCH ×2 (00:25→09:06)
[2022-08-29 06:31] LABS: Hematocrit 27.8 % (35-45); Hemoglobin 9.4 g/dL (11.5-14.3); Mean Corpuscular Hemoglobin 30.4 pg (27-33); Mean Corpuscular Volume 89.5 fL (80-97); Mean Platelet Volume 9.4 fL (7.5-11.2); Platelet Count 329 10^3/uL (150-450); Red Cell Distribution Width 14.5 % (12-17); White Blood Count 1.8 10^3/uL (3.8-11.8)
[2022-08-29 06:35] LABS: ABS Lymphocytes 0.6 10^3/uL (1.0-4.8); ABS Monocytes 0.3 10^3/uL (0.0-0.9); ABS Neutrophils 0.8 10^3/uL (1.5-7.6); Eosinophil % 0.6 %; Lymphocyte % 36.2 %; Nucleated Red Blood Cells % 0.1 /100 WBC (0.0-0.4)
[2022-08-29 07:34] LABS: Calcium 8.2 mg/dL (8.6-10.3); Magnesium 1.6 mg/dL (1.9-2.7); Potassium 3.8 mmol/L (3.5-5.0)
[2022-08-29 07:40] LABS: Creatinine, Serum 0.68 mg/dL (0.51-0.95); eGFR CKD-EPI 103.4 (>60)
[2022-08-29] MEDS: Enoxaparin 30 MG/0.3 ML SYR SUBCUT SCH (09:18)
[2022-08-29] MEDS: Calcium (OSCAL) 500 mg TAB PO SCH (09:20)
[2022-08-29] MEDS: Polyethylene Glycol 3350 17 GM PACKET PO SCH (09:25)
[2022-08-29 11:19] LABS: Calcium 8.2 mg/dL (8.6-10.3); Creatinine, Serum 0.57 mg/dL (0.51-0.95); Magnesium 1.6 mg/dL (1.9-2.7); Potassium 3.3 mmol/L (3.5-5.0); eGFR CKD-EPI 107.9 (>60)
[2022-09-02 11:04] LABS: Hematocrit 29.9 % (35-45); Hemoglobin 10.3 g/dL (11.5-14.3); Mean Corpuscular Hemoglobin 30.1 pg (27-33); Mean Corpuscular Hgb Conc 34.4 g/dL (31-36); Mean Corpuscular Volume 87.6 fL (80-97); Platelet Count 231 10^3/uL (150-450); Red Blood Count 3.41 10^6/uL (3.63-4.92); Red Cell Distribution Width 14.9 % (12-17); White Blood Count 4.9 10^3/uL (3.8-11.8)
[2022-09-02 11:28] LABS: Calcium 8.5 mg/dL (8.6-10.3); Creatinine, Serum 0.6 mg/dL (0.51-0.95); Potassium 3.5 mmol/L (3.5-5.0); eGFR CKD-EPI 106.6 (>60)
[2022-09-02 12:00] LABS: ABS Eosinophils 0.1 10^3/uL (0.0-0.5); ABS Monocytes 0.5 10^3/uL (0.0-0.9); ABS Neutrophils 3.3 10^3/uL (1.5-7.6); Eosinophil % 1.3 %; Lymphocyte % 19.7 %; Nucleated Red Blood Cells % 0.1 /100 WBC (0.0-0.4)
[2022-09-03 11:35] VITALS: BP 132/84
== END 2022-09-03 17:00 | disposition home or self-care (01) | DRG 189 ==
LOC: EDHOLD 12:25 → ED 12:25 → EDHOLD 21:30 → SSU 22:00 → SUATTDRO 08-25 16:45 → ICU 08-25 18:43 → MEDTELE 08-28 08:42 → MED 08-29 06:22
PROVIDERS: ADMIT Hospitalist; ATTEND Internal Medicine